=== PATIENT | male | born 1955 | race African-American/Black ===

== ENCOUNTER → 2017-05-05 | Outpatient (CLI) | payer OTHER ==
--- NOTE | 2017-05-05 10:32 | CT ---
HEAD CT WITHOUT IV CONTRAST CLINICAL INDICATION: Posterior head trauma. TECHNIQUE: Axial CT images from skull base to vertex without IV contrast.Dose reduction techniques in cluding Automated Exposure Control (AEC) and adjustment of mA and kV were utlized. COMPARISON: None FINDINGS: There is no abnormal brain parenchymal density. There is no evidence of acute infarction, intracrani al hemorrhage, mass or mass effect, or abnormal extra-axial collection. The density of the larger dur al venous sinuses is normal. The ventricles are normal in size, shape and position. The skull base an d calvarium are normal. The included paranasal sinuses and mastoid air cells are predominantly clear. No soft tissue findings in the scalp to suggest significant trauma. IMPRESSION: 1. No acute intracranial abnormality. Reported By:
== END ==
LOC: RAD 09:28
PROVIDERS: ATTEND Nurse Practitioner Family
CPT/HCPCS: 70450

== ENCOUNTER → 2017-05-13 | Outpatient (CLI) | payer OTHER ==
--- NOTE | 2017-05-18 12:21 | RAD ---
HISTORY: Spondylosis of the cervical region. Study: Three-view Cervical spine plus lateral views obtained in flexion and extension. Comparison: No priors Technique: AP, odontoid, lateral, lateral flexion and lateral extension views of the cervical spine a re provided. Findings: There is mild disc space narrowing and anterior spondylosis at C5-6 and C6-7. No fracture or subluxat ion is seen. Views obtained in flexion and extension reveal no evidence to indicate instability. Hesperus toid is unremarkable. IMPRESSION: Disc space narrowing and spondylosis at C5-6 and C6-7. No fracture, subluxation or instability is seen. Reported By:
== END ==
LOC: RAD 14:48
PROVIDERS: ATTEND Neurological Surgery
DX: M47.892 Other spondylosis, cervical region (principal)
CPT/HCPCS: 72050

== ENCOUNTER → 2017-05-25 | Outpatient (CLI) | payer OTHER ==
--- NOTE | 2017-05-25 16:00 | MRI ---
HISTORY: Neck pain and cervical radiculopathy. Noncontrast MRI examination of the cervical spine. Technique: Sagittal T1, sagittal T2, axial T2 weighted images were obtained. Findings: Alignment of the cervical spine is maintained. There is mild to moderate cervical spondylos is and facet DJD seen from C3-C7 with multilevel disc osteophyte complexes and diffuse cervical disc desiccation. There is no evidence for an acute fracture or subluxation. No aggressive bone marrow les ion is seen. There is no evidence for cerebral tonsillar ectopia. The posterior elements appear diffu sely intact. There is no evidence for cord expansion, cord edema, or abnormal cord signal. No intrath ecal mass lesions or intrathecal hemorrhage is seen. C2 -- C3: No significant disc pathology or foraminal/spinal canal stenosis. C3 -- C4: Broad-based, left paracentral, disc osteophyte complex which combines with facet DJD to cre ate mild spinal canal narrowing and moderate left-sided foraminal narrowing. C4 -- C5: Broad-based, posterior, disc osteophyte complex which combines with facet DJD to create mil d central spinal canal narrowing and mild bilateral foraminal narrowing. C5 -- C6: Broad-based, left paracentral, disc osteophyte complex which combines with facet DJD to cre ate moderate spinal canal stenosis and moderate L > R foraminal narrowing. C6 -- C7: Broad-based, left paracentral, disc osteophyte complex which combines with facet DJD to cre ate moderate spinal canal stenosis and moderate left-sided foraminal narrowing. C7 -- T1: No significant disc pathology or foraminal/spinal canal stenosis. IMPRESSION: [id number] cervical spondylotic change with C3-C7 central disc osteophyte complexes and facet D DAMIAN which creates [id number] foraminal and spinal canal narrowing at these levels, as detailed a jackson. These stenotic findings are most severe at the C6-7 level. No evidence for cervical cord myelom alacia, however. Reported By:
== END | disposition home or self-care (01) ==
LOC: RAD 10:05
PROVIDERS: ATTEND Neurological Surgery
DX: M47.892 Other spondylosis, cervical region (principal); M25.78 Osteophyte, vertebrae
CPT/HCPCS: 72141